=== PATIENT | male | born 1980 | race Caucasian/White ===

== ENCOUNTER → 2017-04-19 | Outpatient (CLI) | payer BC | LOC: LAB 10:41 | DX: Z30.8 Encounter for other contraceptive management (principal) ==

== ENCOUNTER → 2017-07-11 | Outpatient (CLI) | payer SELFPAY ==
[2017-07-11 08:51] LABS: EOS # 0.3 (0.04-0.40); HEMATOCRIT 47.9 % (42.0-52.0); HEMOGLOBIN 16.4 g/dL (13.5-18.0); MEAN CELL VOLUME 91 fl (78-100); MEAN CORPUSCULAR HEMOGLOBIN 31 pg (27-31); MEAN CORPUSCULAR HGB CONC 34 g/dL (33-37); MEAN PLATELET VOLUME 9.9 fl (7.4-10.4); MONO # 0.6 (0.20-0.80); NEU # 2.4 (1.40-6.50); PLATELET COUNT 241 K/mm3 (130-400); RED BLOOD COUNT 5.29 M/mm3 (4.20-5.60); RED CELL DISTRIBUTION WIDTH 12.5 % (11.5-14.5); WHITE BLOOD COUNT 5.3 K/mm3 (4.8-10.8)
[2017-07-11 08:54] LABS: EOS % 5.8 % (0.0-4.0)
[2017-07-11 09:03] LABS: ALBUMIN 4.4 g/dL (3.5-5.0); BUN/CREATININE RATIO 16.6 (6.0-26.0); CALCIUM 9.2 mg/dL (8.4-10.2); POTASSIUM 4.2 mmol/L (3.6-5.0); TOTAL BILIRUBIN 0.6 mg/dL (0.2-1.3); TOTAL PROTEIN 7.7 g/dL (6.3-8.2)
[2017-07-12 00:01] LABS: FOLATE (FOLIC ACID) 15.5 ng/mL (7.0-31.4)
== END ==
LOC: LAB 08:40
PROVIDERS: Nurse Practitioner Family
DX: G62.9 Polyneuropathy, unspecified (principal); Z83.3 Family history of diabetes mellitus; R00.2 Palpitations

== ENCOUNTER → 2019-03-13 | Outpatient (CLI) | payer BC ==
[2019-03-13 10:04] LABS: EOS # 0.2 (0.04-0.40); EOS % 2.9 % (0.0-4.0); HEMOGLOBIN 16.7 g/dL (13.5-18.0); LYMPH# 1.3 (1.50-4.00); MEAN CELL VOLUME 89 fl (78-100); MEAN CORPUSCULAR HEMOGLOBIN 31 pg (27-31); MEAN CORPUSCULAR HGB CONC 35 g/dL (33-37); MEAN PLATELET VOLUME 10.1 fl (7.4-10.4); MONO # 0.5 (0.20-0.80); NEU # 3.4 (1.40-6.50); PLATELET COUNT 255 K/mm3 (130-400); RED BLOOD COUNT 5.39 M/mm3 (4.20-5.60); RED CELL DISTRIBUTION WIDTH 11.9 % (11.5-14.5); WHITE BLOOD COUNT 5.5 K/mm3 (4.8-10.8)
[2019-03-13 10:16] LABS: POTASSIUM 4.6 mmol/L (3.5-5.1)
[2019-03-13 10:17] LABS: ALBUMIN 4.5 g/dL (3.5-5.0)
[2019-03-13 10:18] LABS: CALCIUM 9.4 mg/dL (8.3-10.5)
[2019-03-13 10:19] LABS: TOTAL PROTEIN 7.4 g/dL (6.4-8.3)
[2019-03-13 10:21] LABS: TOTAL BILIRUBIN 0.9 mg/dL (0.2-1.2)
== END ==
LOC: LAB 09:51
PROVIDERS: Physician Assistant
DX: Z00.00 Encounter for general adult medical examination without abnormal findings (principal); Z12.31 Encounter for screening mammogram for malignant neoplasm of breast; Z13.220 Encounter for screening for lipoid disorders; R00.2 Palpitations; J30.1 Allergic rhinitis due to pollen; L40.9 Psoriasis, unspecified; Z83.3 Family history of diabetes mellitus

== ENCOUNTER → 2020-03-18 | Outpatient (CLI) | payer BC ==
[2020-03-18 11:39] LABS: ALBUMIN 4.6 g/dL (3.5-5.0); POTASSIUM 4.6 mmol/L (3.5-5.1)
[2020-03-18 11:41] LABS: CALCIUM 9.3 mg/dL (8.3-10.5)
[2020-03-18 11:42] LABS: TOTAL PROTEIN 7.8 g/dL (6.4-8.3)
[2020-03-18 11:44] LABS: TOTAL BILIRUBIN 0.8 mg/dL (0.2-1.2)
[2020-03-18 11:46] LABS: EOS # 0.3 (0.04-0.40); EOS % 4.8 % (0.0-4.0); HEMATOCRIT 47.6 % (42.0-52.0); HEMOGLOBIN 16.4 g/dL (13.5-18.0); LYMPH# 1.5 (1.50-4.00); MEAN CELL VOLUME 91 fl (78-100); MEAN CORPUSCULAR HEMOGLOBIN 31 pg (27-31); MEAN CORPUSCULAR HGB CONC 35 g/dL (33-37); MEAN PLATELET VOLUME 10.3 fl (7.4-10.4); MONO # 0.6 (0.20-0.80); NEU # 3.4 (1.40-6.50); PLATELET COUNT 248 K/mm3 (130-400); RED BLOOD COUNT 5.25 M/mm3 (4.20-5.60); RED CELL DISTRIBUTION WIDTH 11.9 % (11.5-14.5); WHITE BLOOD COUNT 5.8 K/mm3 (4.8-10.8)
== END ==
LOC: LAB 11:16
PROVIDERS: Physician Assistant
DX: Z00.00 Encounter for general adult medical examination without abnormal findings (principal); E78.5 Hyperlipidemia, unspecified; R10.11 Right upper quadrant pain; Q65.9 Congenital deformity of hip, unspecified; R73.9 Hyperglycemia, unspecified; R20.0 Anesthesia of skin; Z83.3 Family history of diabetes mellitus

== ENCOUNTER → 2020-03-24 | Outpatient (CLI) | payer BC | LOC: RAD 07:30 | DX: R10.11 Right upper quadrant pain (principal) ==

== ENCOUNTER → 2021-03-26 | Outpatient (CLI) | payer BC ==
[2021-03-26 09:42] LABS: BASO # 0.05 K/mm3 (0.02-0.10); EOS # 0.26 K/mm3 (0.04-0.40); EOS % 4.1 % (0.0-4.0); HEMATOCRIT 46.7 % (42.0-52.0); HEMOGLOBIN 16.2 g/dL (13.5-18.0); LYMPH# 1.82 K/mm3 (1.50-4.00); MEAN CELL VOLUME 91 fl (78-100); MEAN CORPUSCULAR HEMOGLOBIN 32 pg (27-31); MEAN CORPUSCULAR HGB CONC 35 g/dL (33-37); MEAN PLATELET VOLUME 10.7 fl (7.4-10.4); NEU # 3.64 K/mm3 (1.40-6.50); PLATELET COUNT 232 K/mm3 (130-400); RED BLOOD COUNT 5.12 M/mm3 (4.20-5.60); RED CELL DISTRIBUTION WIDTH 11.5 % (11.5-14.5); WHITE BLOOD COUNT 6.3 K/mm3 (4.8-10.8)
[2021-03-26 09:51] LABS: ALBUMIN 4.2 g/dL (3.5-5.0); POTASSIUM 4.1 mmol/L (3.5-5.1)
[2021-03-26 09:53] LABS: CALCIUM 9.4 mg/dL (8.3-10.5)
[2021-03-26 09:54] LABS: TOTAL PROTEIN 7.1 g/dL (6.4-8.3)
[2021-03-26 09:56] LABS: TOTAL BILIRUBIN 0.7 mg/dL (0.2-1.2)
== END ==
LOC: LAB 08:01
PROVIDERS: Physician Assistant
DX: Z00.00 Encounter for general adult medical examination without abnormal findings (principal); Z12.5 Encounter for screening for malignant neoplasm of prostate; Z13.220 Encounter for screening for lipoid disorders; R00.2 Palpitations; M25.512 Pain in left shoulder; Z83.3 Family history of diabetes mellitus

== ENCOUNTER → 2022-01-26 | Outpatient (CLI) | payer BC ==
[2022-01-26 08:29] LABS: HEMATOCRIT 45.3 % (42.0-52.0); HEMOGLOBIN 15.7 g/dL (13.5-18.0); RED BLOOD COUNT 4.96 M/mm3 (4.20-5.60); RED CELL DISTRIBUTION WIDTH 11.7 % (11.5-14.5); WHITE BLOOD COUNT 4.9 K/mm3 (4.8-10.8)
[2022-01-26 08:39] LABS: ALBUMIN 4.3 g/dL (3.5-5.0)
[2022-01-26 08:41] LABS: CALCIUM 9.3 mg/dL (8.3-10.5)
[2022-01-26 08:42] LABS: TOTAL PROTEIN 6.8 g/dL (6.4-8.3)
[2022-01-26 08:44] LABS: TOTAL BILIRUBIN 0.8 mg/dL (0.2-1.2)
== END ==
LOC: LAB 08:07
PROVIDERS: Internal Medicine Gastroenterology
DX: R19.4 Change in bowel habit (principal); K92.1 Melena; R19.7 Diarrhea, unspecified; R10.11 Right upper quadrant pain

== ENCOUNTER → 2024-05-13 | Outpatient (CLI) | payer OTHER ==
[2024-05-13 09:42] LABS: BASO # 0.04 K/mm3 (0.02-0.10); EOS # 0.34 K/mm3 (0.04-0.40); EOS % 4.9 % (0.0-4.0); HEMATOCRIT 47.2 % (42.0-52.0); HEMOGLOBIN 16.2 g/dL (13.5-18.0); LYMPH# 1.89 K/mm3 (1.50-4.00); MEAN CELL VOLUME 92 fl (78-100); MEAN CORPUSCULAR HEMOGLOBIN 31 pg (27-31); MEAN CORPUSCULAR HGB CONC 34 g/dL (33-37); MEAN PLATELET VOLUME 9.7 fl (7.4-10.4); MONO # 0.63 K/mm3 (0.20-0.80); NEU # 4.08 K/mm3 (1.40-6.50); PLATELET COUNT 253 K/mm3 (130-400); RED BLOOD COUNT 5.16 M/mm3 (4.20-5.60); RED CELL DISTRIBUTION WIDTH 11.7 % (11.5-14.5)
[2024-05-13 09:48] LABS: ALBUMIN 4.3 g/dL (3.5-5.0)
[2024-05-13 09:49] LABS: CALCIUM 9.4 mg/dL (8.3-10.5)
[2024-05-13 09:51] LABS: TOTAL PROTEIN 6.9 g/dL (6.4-8.3)
[2024-05-13 09:53] LABS: TOTAL BILIRUBIN 0.9 mg/dL (0.2-1.2)
== END ==
LOC: LAB 09:28
PROVIDERS: Physician Assistant
DX: Z13.220 Encounter for screening for lipoid disorders (principal); Z13.29 Encounter for screening for other suspected endocrine disorder; Z83.3 Family history of diabetes mellitus; R10.9 Unspecified abdominal pain